=== PATIENT | female | born 1955 | race Caucasian/White ===

== ENCOUNTER → 2018-06-20 | Outpatient (CLI) | payer MEDICARE ==
[~2018-06-20] MED LIST: ASP81 PO; BUP75; FLUO40CA76 PO; GABA-1; HYDR-5517 PO; LEV125; LOR5; OMEP40CA79; OXYC-830 PO
--- NOTE | 2018-06-20 14:29 | RADIOLOGY IMAGING REPORT ---
FACILITY: [facility] PATIENT NAME: MARNI DOMINGUEZ : [id number] MR: [id number] V: [id number] EXAM DATE: ORDERING PHYSICIAN: PREM TO TECHNOLOGIST: Brandi Enriquez PROCEDURE:BILATERAL DIGITAL SCREENING MAMMOGRAM WITH CAD ASSISTED INTERPRETATION & 3D TOMOSYNTHESIS COMPARISON:Prior mammograms 11/09/16, 06/30/15, 05/19/15. INDICATIONS:SCREENING FINDINGS: There is predominant fatty replacement throughout the breasts. Several partially calcified oil cysts in the upper outer Right breast are again seen. The parenchymal pattern has remained stable allowing for difference in mammographic technique & patient positioning. There is no evidence of malignant appearing mass, malignant appearing calcifications or other secondary sign of malignancy in either breast. DIAGNOSTIC CATEGORY 2--BENIGN FINDING. RECOMMENDATIONS: ROUTINE MAMMOGRAM AND CLINICAL EVALUATION. IMPRESSION: BIRADS 2: Benign finding. No significant abnormality is seen. Dictated by: Karol Herrmann M.D. on 06/20/2018 at 10:25 Transcribed by: [email or web address] on 06/20/2018 at 10:32 Approved by: Karol Herrmann M.D. on 06/20/2018 at 14:28 [facility]
== END ==
LOC: MAMO 03:40
PROVIDERS: ATTEND Nurse Practitioner Family
DX: Z12.31 Encounter for screening mammogram for malignant neoplasm of breast (principal)
CPT/HCPCS: 77063; 77067

== ENCOUNTER → 2019-02-27 | Outpatient (CLI) | payer MEDICARE ==
--- NOTE | 2019-02-27 14:37 | RADIOLOGY IMAGING REPORT ---
FAC[facility] PATIENT NAME: Sylvie Boo : 1955 MR: [id number] V: [id number] EXAM DATE: ORDERING PHYSICIAN: PREM TO TECHNOLOGIST: Location: [facility] [place] Patient: Sylvie Boo : 1955 Visit/Account:[id number] Date of Sevice: 02/27/2019 GALLBLADDER HISTORY: Right upper quadrant pain COMPARISON: Liver ultrasound May 11, 2015 FINDINGS: Gallbladder: Unremarkable; no stones or sludge. Liver: There is a septated cyst posterior right lobe the liver measuring 2.9 x 2.5 x 2.2 cm this is s lightly increased in size when compared to the prior study Common duct: Normal, 2.7 mm diameter. Pancreas: Partially obscured by bowel, visualized aspects unremarkable. Right kidney: Right kidney appears unremarkable measuring 9.4 cm in length Upper abdominal aorta and IVC: Patent. Ascites: None visualized. IMPRESSION: Is a septated cyst posterior right lobe the liver measuring 2.9 x 2.5 x 2.2 cm which is slightly incr eased in size when compared the prior study Report Dictated By: Karol Herrmann MD at 02/27/2019 2:05 PM Report E-Signed By: Karol Herrmann MD at 02/27/2019 2:28 PM WSN:[id number]
== END ==
LOC: US 00:46
PROVIDERS: ATTEND Nurse Practitioner Family
DX: K76.89 Other specified diseases of liver (principal)
CPT/HCPCS: 76705